=== PATIENT | male | born 1975 | race Caucasian/White ===

== ENCOUNTER → 2016-10-25 | Outpatient (CLI) | payer BC ==
[~2016-10-25] MED LIST: ADDERALL30 MG PO; ALBUTEROL0.09 MG/A2 INH; AMOXICILLIN500 MG PO; AMOXIL500 M1 PO; AMOXIL500 MG PO; ANAPROX DS550 MG PO; ATIVAN1 MG PO; AUGMENTIN 875 M1 TAB PO; AUGMENTIN 875875 MG PO; BACTRIM DS 8001 TA1 PO; BLEPH-10 15 ML15 ML OPH; CLARITIN-D 10 M1 T21 PO; CLARITIN10 MG PO; COMBIVENT1 ARO IH; DAYPRO600 M1 PO; DICLOFENAC POTA50 MG PO; DUONEB 3 MG/3 ML3 M1 INH; Duoneb 3ML 3 MG/3 ML INH; FLOVENT DI100 MCG/Ac IH; Flovent 44 Mcg44 MCG INH; KEFLEX500 MG PO; LEVOFLOXACIN500 MG PO; MEDROL DOSEPAK4 MG PO; MOTRIN800 MG PO; NAPROSYN500 MG PO; NORCO 325 MG-51 TAB PO; PHENERGAN W/ DE30 ML PO; PHENERGAN W/DM120 ML PO; PREDNICOT10 MG PO; PREDNISONE10 MG PO; PREDNISONE20 M1 PO; PROAIR HFA0.09 MG/AC INH; PROAIR HFA8.5 GM IH; PROVENTIL0.09 MG/A1 INH; PROVENTIL0.09 MG/AC INH; REMERON30 MG PO; REMERON45 MG PO; ROBITUSSIN AC 110 ML PO; SEPTRA DS 800 M1 TAB PO; TRAMADOL HCL50 MG PO; TRIMOX500 MG PO; ULTRAM50 MG PO; VENTOLIN H0.09 MG/AC INH; VICO10300 PO; ZITHROMAX Z PA250 MG PO
== END | disposition home or self-care (01) ==
LOC: CARD 10:07
DX: Z51.81 Encounter for therapeutic drug level monitoring (principal); F15.20 Other stimulant dependence, uncomplicated; Z79.899 Other long term (current) drug therapy

== ENCOUNTER 2017-12-17 05:48 | Emergency (ER) | payer BC ==
[~2017-12-17] VITALS: Ht 167.6 cm; Wt 83.9 kg
--- NOTE | ~2017-12-17 | EKG ---
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
[2017-12-17 06:33] LABS: BASO # 0.1 10*3/uL (0.0-0.1); BASO % 0.8 % (0.0-1.0); EOS # 0.6 10*3/uL (0.0-0.4); EOS % 8.9 % (1.0-4.0); HEMOGLOBIN 14.8 g/dl (14.0-18.0); LYMPH # 2.8 10*3/uL (1.3-4.4); LYMPH % 44.3 % (27.0-41.0); MEAN CORPUSCULAR HGB CONC 34.4 g/dl (33.0-37.0); MEAN PLATELET VOLUME 9.9 fl (9.6-12.3); MONO # 0.5 10*3/uL (0.1-1.0); MONO % 7.2 % (3.0-9.0); NEUT # 2.4 10*3/uL (2.3-7.9); NEUT % 38.6 % (47.0-73.0); PLATELET COUNT AUTOMATED 175 10*3/uL (130-400); RED BLOOD COUNT 4.48 10*6/uL (4.50-5.90); RED CELL DISTRI WIDTH 12.2 % (0-14.5); WHITE BLOOD COUNT 6.2 10*3/uL (4.8-10.8)
[2017-12-17 06:49] LABS: ALBUMIN 3.8 gm/dl (3.1-4.5); ALKALINE PHOSPHATASE 80 U/L (45-117); BUN 14 mg/dl (7-24); CHLORIDE 108 mmol/L (98-107); CREATININE 0.88 mg/dL (0.70-1.30); LIPASE 183 U/L (73-393); SGOT/AST 15 IU/L (3-35); SGPT/ALT 29 U/L (12-78); SODIUM 141 mmol/L (136-145); TOTAL PROTEIN 6.9 gm/dL (6.4-8.2)
[2017-12-17 06:51] LABS: TROPONIN I < 0.015 ng/ml (<0.045)
[2017-12-17 08:28] LABS: BILIRUBIN NEGATIVE (NEGATIVE); BLOOD NEGATIVE (NEGATIVE); CLARITY CLEAR (CLEAR); COLOR YELLOW (YELLOW); GLUCOSE NEGATIVE (NEGATIVE); KETONE NEGATIVE (NEGATIVE); LEUKO ESTERASE NEGATIVE (NEGATIVE); NITRITE NEGATIVE (NEGATIVE); UROBILINOGEN 0.2 E.U./dl (0.2-1.0)
[2017-12-17 08:29] LABS: EPITHELIAL CELLS 0-2; MUCOUS TRACE; WBC 0-2 wbc/hpf (0-5)
== END 2017-12-17 10:10 | disposition home or self-care (01) ==
LOC: ED 05:48
PROVIDERS: Emergency Medicine Emergency Medical Services
DX: K52.9 Noninfective gastroenteritis and colitis, unspecified (principal); J45.909 Unspecified asthma, uncomplicated; Z79.899 Other long term (current) drug therapy

== ENCOUNTER 2018-02-09 12:26 | Emergency (ER) | payer BC ==
[~2018-02-09] VITALS: Ht 165.1 cm; Wt 83.9 kg
[2018-02-09] MEDS ORDERED: AMOXICILLIN500 M2 PO (14:44)
[2018-02-09] MEDS ORDERED: NAPROSYN500 MG PO (14:44)
[2018-02-09] MEDS ORDERED: PREDNISONE20 M1 PO (14:44)
[2018-02-09] MEDS ORDERED: ROBAXIN500 M1 PO (14:44)
== END 2018-02-09 15:05 | disposition home or self-care (01) ==
LOC: ED 12:26
DX: S39.012A Strain of muscle, fascia and tendon of lower back, initial encounter (principal); J20.9 Acute bronchitis, unspecified; Z79.899 Other long term (current) drug therapy; X58.XXXA Exposure to other specified factors, initial encounter; Y93.89 Activity, other specified; Y92.89 Other specified places as the place of occurrence of the external cause; Y99.8 Other external cause status

== ENCOUNTER 2018-06-15 09:55 | Emergency (ER) | payer BC ==
[~2018-06-15] VITALS: Ht 162.5 cm; Wt 87.1 kg
[~2018-06-15 09:55] MED LIST changes: +AMOXICILLIN500 M2 PO; +ROBAXIN500 M1 PO
[2018-06-15] MEDS ORDERED: ROBAXIN500 M1 PO (12:46)
[2018-06-15] MEDS ORDERED: IBUPROFEN600 MG PO (12:46)
== END 2018-06-15 12:53 | disposition home or self-care (01) ==
LOC: ED 09:55
DX: S13.9XXA Sprain of joints and ligaments of unspecified parts of neck, initial encounter (principal); M79.18 Myalgia, other site; M25.511 Pain in right shoulder; M25.512 Pain in left shoulder; Z87.891 Personal history of nicotine dependence; Z91.048 Other nonmedicinal substance allergy status; Z79.899 Other long term (current) drug therapy; Z79.2 Long term (current) use of antibiotics; X50.1XXA Overexertion from prolonged static or awkward postures, initial encounter; Y93.89 Activity, other specified; Y92.89 Other specified places as the place of occurrence of the external cause; Y99.0 Civilian activity done for income or pay

== ENCOUNTER 2019-01-23 09:47 | Emergency (ER) | payer BC ==
[~2019-01-23] VITALS: Ht 167.6 cm; Wt 83.9 kg
[~2019-01-23 09:47] MED LIST changes: +IBUPROFEN600 MG PO
[2019-01-23] MEDS ORDERED: AUGMENTIN 875-875 MG PO (09:55)
[2019-01-23] MEDS ORDERED: FLONASE ALLERG9.9 ML NAS (09:55)
[2019-01-23] MEDS ORDERED: MUCINEX DM ER1 EACH PO (09:55)
== END 2019-01-23 10:04 | disposition home or self-care (01) ==
LOC: ED 09:47
DX: J01.10 Acute frontal sinusitis, unspecified (principal); J01.00 Acute maxillary sinusitis, unspecified; J45.909 Unspecified asthma, uncomplicated; Z91.048 Other nonmedicinal substance allergy status; Z87.891 Personal history of nicotine dependence; Z79.899 Other long term (current) drug therapy; Z79.2 Long term (current) use of antibiotics

== ENCOUNTER 2019-03-28 10:36 | Emergency (ER) | payer BC ==
[~2019-03-28] VITALS: Ht 167.6 cm; Wt 86.2 kg
[~2019-03-28 10:36] MED LIST changes: +AUGMENTIN 875-875 MG PO; +FLONASE ALLERG9.9 ML NAS; +MUCINEX DM ER1 EACH PO
[2019-03-28 12:04] LABS: BASO % 0.7 % (0.0-1.0); EOS # 0.4 10*3/uL (0.0-0.4); EOS % 6.5 % (1.0-4.0); HEMATOCRIT 38.3 % (42.0-52.0); HEMOGLOBIN 13.1 g/dl (14.0-18.0); LYMPH # 2.2 10*3/uL (1.3-4.4); LYMPH % 40.1 % (27.0-41.0); MEAN CELL VOLUME 98.5 fl (80.0-94.0); MEAN CORPUSCULAR HGB 33.7 pg (27.0-31.0); MEAN CORPUSCULAR HGB CONC 34.2 g/dl (33.0-37.0); MEAN PLATELET VOLUME 10.1 fl (9.6-12.3); MONO # 0.5 10*3/uL (0.1-1.0); MONO % 8.2 % (3.0-9.0); NEUT # 2.4 10*3/uL (2.3-7.9); NEUT % 44.3 % (47.0-73.0); PLATELET COUNT AUTOMATED 159 10*3/uL (130-400); RED BLOOD COUNT 3.89 10*6/uL (4.50-5.90); RED CELL DISTRI WIDTH 12.2 % (0-14.5); WHITE BLOOD COUNT 5.5 10*3/uL (4.8-10.8)
[2019-03-28 12:23] LABS: ALBUMIN 3.4 gm/dl (3.1-4.5); BUN 14 mg/dl (7-24); CHLORIDE 111 mmol/L (98-107); CREATININE 0.88 mg/dL (0.70-1.30); SGOT/AST 10 IU/L (3-35); SGPT/ALT 28 U/L (12-78); SODIUM 142 mmol/L (136-145)
[2019-03-28 12:24] LABS: ALKALINE PHOSPHATASE 81 U/L (45-117); TOTAL PROTEIN 6.4 gm/dL (6.4-8.2)
== END 2019-03-28 14:24 | disposition home or self-care (01) ==
LOC: ED 10:36
PROVIDERS: Physician Assistant
DX: H53.8 Other visual disturbances (principal); J45.909 Unspecified asthma, uncomplicated; Z79.899 Other long term (current) drug therapy

== ENCOUNTER 2019-06-13 13:53 | Emergency (ER) | payer BC ==
[~2019-06-13] VITALS: Ht 165.1 cm; Wt 83.9 kg
[2019-06-13] MEDS ORDERED: TESSALON PERLE100 M1 PO (15:21)
[2019-06-13] MEDS ORDERED: DOXYCYCLINE100 M3 PO (15:21)
== END 2019-06-13 15:24 | disposition home or self-care (01) ==
LOC: ED 13:53
DX: J45.901 Unspecified asthma with (acute) exacerbation (principal); M54.5 Low back pain; Z87.891 Personal history of nicotine dependence; Z79.899 Other long term (current) drug therapy; Z79.2 Long term (current) use of antibiotics

== ENCOUNTER 2019-07-24 18:49 | Emergency (ER) | payer BC ==
[~2019-07-24] VITALS: Ht 170.1 cm; Wt 84.4 kg
[~2019-07-24 18:49] MED LIST changes: +DOXYCYCLINE100 M3 PO; +TESSALON PERLE100 M1 PO
[2019-07-24] MEDS ORDERED: NAPROSYN500 MG PO (21:51)
[2019-07-24] MEDS ORDERED: CYCLOBENZAPRINE5 M3 PO (21:51)
== END 2019-07-24 22:00 | disposition home or self-care (01) ==
LOC: ED 18:49
DX: S20.211A Contusion of right front wall of thorax, initial encounter (principal); Z79.899 Other long term (current) drug therapy; V19.9XXA Pedal cyclist (driver) (passenger) injured in unspecified traffic accident, initial encounter; Y93.89 Activity, other specified; Y92.89 Other specified places as the place of occurrence of the external cause; Y99.8 Other external cause status

== ENCOUNTER 2019-08-12 14:14 | Emergency (ER) | payer BC ==
[~2019-08-12] VITALS: Ht 167.6 cm; Wt 83.9 kg
[~2019-08-12 14:14] MED LIST changes: +CYCLOBENZAPRINE5 M3 PO
[2019-08-12] MEDS ORDERED: IBUPROFEN600 MG PO (15:59)
== END 2019-08-12 16:14 | disposition home or self-care (01) ==
LOC: ED 14:14
DX: S20.20XA Contusion of thorax, unspecified, initial encounter (principal); F32.9 Major depressive disorder, single episode, unspecified; F41.9 Anxiety disorder, unspecified; J45.909 Unspecified asthma, uncomplicated; F17.200 Nicotine dependence, unspecified, uncomplicated; Z79.899 Other long term (current) drug therapy; Z79.2 Long term (current) use of antibiotics; W19.XXXA Unspecified fall, initial encounter; Y93.89 Activity, other specified; Y92.89 Other specified places as the place of occurrence of the external cause; Y99.8 Other external cause status

== ENCOUNTER → 2019-12-19 | Outpatient (CLI) | payer BC ==
[2019-12-19 15:55] LABS: BASO % 0.7 % (0.0-1.0); EOS # 0.6 10*3/uL (0.0-0.4); EOS % 9.9 % (1.0-4.0); LYMPH # 2.3 10*3/uL (1.3-4.4); LYMPH % 39.1 % (27.0-41.0); MEAN CELL VOLUME 96.6 fl (80.0-94.0); MEAN CORPUSCULAR HGB 31.6 pg (27.0-31.0); MEAN CORPUSCULAR HGB CONC 32.8 g/dl (33.0-37.0); MEAN PLATELET VOLUME 10.2 fl (9.6-12.3); MONO # 0.4 10*3/uL (0.1-1.0); MONO % 7.2 % (3.0-9.0); NEUT # 2.6 10*3/uL (2.3-7.9); NEUT % 42.9 % (47.0-73.0); PLATELET COUNT AUTOMATED 179 10*3/uL (130-400); RED BLOOD COUNT 4.14 10*6/uL (4.50-5.90); RED CELL DISTRI WIDTH 12.2 % (0-14.5)
[2019-12-19 16:25] LABS: ALBUMIN 3.5 gm/dl (3.1-4.5); ALKALINE PHOSPHATASE 90 U/L (45-117); BILIRUBIN, DIRECT < 0.1 mg/dL (0.0-0.2); BUN 13 mg/dl (7-24); CHLORIDE 112 mmol/L (98-107); CHOLESTEROL 142 mg/dL (<200); CREATININE 0.89 mg/dL (0.70-1.30); HDL CHOLESTEROL 51 mg/dl (40-60); LDL CHOLESTEROL 57 mg/dL (9-159); POTASSIUM 4.1 mmol/L (3.5-5.1); SGOT/AST 17 IU/L (3-35); SGPT/ALT 28 U/L (12-78); SODIUM 139 mmol/L (136-145); T3 UPTAKE 34 % (31-39); THYROXINE (T4) TOTAL 7.2 ug/dl (4.5-12.1); TOTAL PROTEIN 6.9 gm/dL (6.4-8.2); TRIGLYCERIDES 171 mg/dl (<150); VLDL CHOLESTEROL 34 mg/dL (6-40)
== END | disposition home or self-care (01) ==
LOC: LAB 14:56
DX: Z51.81 Encounter for therapeutic drug level monitoring (principal); Z79.899 Other long term (current) drug therapy

== ENCOUNTER 2020-01-02 14:00 | Emergency (ER) | payer BC ==
[~2020-01-02] VITALS: Ht 167.6 cm; Wt 85.7 kg
[2020-01-02] MEDS ORDERED: MEDROL DOSEPAK4 MG PO (15:45)
[2020-01-02] MEDS ORDERED: ZITHROMAX250 MG PO (15:45)
== END 2020-01-02 16:15 | disposition home or self-care (01) ==
LOC: ED 14:00
DX: J45.901 Unspecified asthma with (acute) exacerbation (principal); F17.200 Nicotine dependence, unspecified, uncomplicated; Z79.899 Other long term (current) drug therapy

== ENCOUNTER → 2020-02-22 | Outpatient (CLI) | payer BC ==
[~2020-02-22] MED LIST changes: +VENTOLIN 02.5 MG/3 M INH; +ZITHROMAX250 MG PO
== END ==
LOC: COVID19 11:49
PROVIDERS: ATTEND Internal Medicine
DX: Z20.828 Contact with and (suspected) exposure to other viral communicable diseases (principal)

== ENCOUNTER 2020-02-27 14:04 | Emergency (ER) | payer BC ==
[~2020-02-27] VITALS: Wt 79.4 kg
[~2020-02-27 14:04] MED LIST changes: -VENTOLIN 02.5 MG/3 M INH
[2020-02-27 14:31] LABS: BASO % 0.5 % (0.0-1.0); EOS # 0.6 10*3/uL (0.0-0.4); EOS % 10.3 % (1.0-4.0); HEMATOCRIT 41.1 % (42.0-52.0); LYMPH # 1.9 10*3/uL (1.3-4.4); LYMPH % 31.9 % (27.0-41.0); MEAN CELL VOLUME 96.3 fl (80.0-94.0); MEAN CORPUSCULAR HGB CONC 34.3 g/dl (33.0-37.0); MEAN PLATELET VOLUME 9.8 fl (9.6-12.3); MONO # 0.4 10*3/uL (0.1-1.0); MONO % 6.3 % (3.0-9.0); NEUT # 3.1 10*3/uL (2.3-7.9); NEUT % 50.8 % (47.0-73.0); PLATELET COUNT AUTOMATED 180 10*3/uL (130-400); RED BLOOD COUNT 4.27 10*6/uL (4.50-5.90); RED CELL DISTRI WIDTH 12.2 % (0-14.5)
[2020-02-27 14:45] LABS: ALBUMIN 3.4 gm/dl (3.1-4.5); ALKALINE PHOSPHATASE 88 U/L (45-117); BUN 11 mg/dl (7-24); CHLORIDE 112 mmol/L (98-107); CREATININE 0.85 mg/dL (0.70-1.30); SGOT/AST 16 IU/L (3-35); SGPT/ALT 27 U/L (12-78); SODIUM 142 mmol/L (136-145); TOTAL PROTEIN 6.8 gm/dL (6.4-8.2)
[2020-02-27 14:46] LABS: ACT PARTIAL THROMBO TIME 25.1 SECONDS (20.0-32.1); INTERNATIONAL NORM RATIO 0.9 (2.0-3.5)
[2020-02-27 14:47] LABS: TROPONIN I < 0.015 ng/ml (<0.045)
[2020-02-27] MEDS ORDERED: VENTOLIN 02.5 MG/3 M INH (16:38)
== END 2020-02-27 17:09 | disposition home or self-care (01) ==
LOC: ED 14:04
PROVIDERS: Emergency Medicine
DX: J45.901 Unspecified asthma with (acute) exacerbation (principal); Z79.899 Other long term (current) drug therapy

== ENCOUNTER 2020-04-04 13:06 | Emergency (ER) | payer BC ==
[~2020-04-04] VITALS: Wt 83.9 kg
[~2020-04-04 13:06] MED LIST changes: +VENTOLIN 02.5 MG/3 M INH
[2020-04-04] MEDS ORDERED: PREDNISONE20 M1 PO (14:11)
[2020-04-04] MEDS ORDERED: PROVENTIL HFA6.7 GM INH (14:11)
[2020-04-04] MEDS ORDERED: SEPTDS PO (15:26)
== END 2020-04-04 15:30 | disposition home or self-care (01) ==
LOC: ED 13:06
DX: J32.9 Chronic sinusitis, unspecified (principal); Z79.899 Other long term (current) drug therapy

== ENCOUNTER → 2020-06-11 | Outpatient (CLI) | payer BC ==
[~2020-06-11] MED LIST changes: +PROVENTIL HFA6.7 GM INH; +SEPTDS PO
[2020-06-11 08:00] LABS: BASO # 0.1 10*3/uL (0.0-0.1); BASO % 0.9 % (0.0-1.0); EOS # 0.6 10*3/uL (0.0-0.4); EOS % 9.1 % (1.0-4.0); HEMATOCRIT 45.2 % (42.0-52.0); LYMPH # 2.4 10*3/uL (1.3-4.4); LYMPH % 37.4 % (27.0-41.0); MEAN CELL VOLUME 94.6 fl (80.0-94.0); MEAN CORPUSCULAR HGB 32.4 pg (27.0-31.0); MEAN CORPUSCULAR HGB CONC 34.3 g/dl (33.0-37.0); MEAN PLATELET VOLUME 9.6 fl (9.6-12.3); MONO # 0.5 10*3/uL (0.1-1.0); MONO % 7.1 % (3.0-9.0); NEUT # 2.9 10*3/uL (2.3-7.9); NEUT % 45.2 % (47.0-73.0); PLATELET COUNT AUTOMATED 198 10*3/uL (130-400); RED BLOOD COUNT 4.78 10*6/uL (4.50-5.90); WHITE BLOOD COUNT 6.5 10*3/uL (4.8-10.8)
[2020-06-11 08:29] LABS: ALBUMIN 3.6 gm/dl (3.1-4.5); ALKALINE PHOSPHATASE 78 U/L (45-117); BUN 13 mg/dl (7-24); CHLORIDE 109 mmol/L (98-107); CHOLESTEROL 185 mg/dL (<200); CREATININE 0.89 mg/dL (0.70-1.30); HDL CHOLESTEROL 60 mg/dl (40-60); LDL CHOLESTEROL 84 mg/dL (9-159); SGOT/AST 11 IU/L (3-35); SGPT/ALT 26 U/L (12-78); SODIUM 142 mmol/L (136-145); TOTAL PROTEIN 7.2 gm/dL (6.4-8.2); TRIGLYCERIDES 203 mg/dl (<150); VLDL CHOLESTEROL 41 mg/dL (6-40)
== END | disposition home or self-care (01) ==
LOC: LAB 07:49
DX: Z51.81 Encounter for therapeutic drug level monitoring (principal); Z79.899 Other long term (current) drug therapy

== ENCOUNTER 2020-06-22 11:39 | Emergency (ER) | payer BC ==
[~2020-06-22] VITALS: Ht 167.6 cm; Wt 83.9 kg
[2020-06-22] MEDS ORDERED: MEDROL DOSEPAK4 MG PO (14:09)
== END 2020-06-22 14:30 | disposition home or self-care (01) ==
LOC: ED 11:39
DX: M54.12 Radiculopathy, cervical region (principal); Z79.899 Other long term (current) drug therapy; Z79.2 Long term (current) use of antibiotics

== ENCOUNTER 2020-06-29 14:32 | Emergency (ER) | payer BC ==
[~2020-06-29] VITALS: Ht 167.6 cm; Wt 81.6 kg
== END 2020-06-29 17:14 | disposition home or self-care (01) ==
LOC: ED 14:32
DX: U07.1 COVID-19 (principal)

== ENCOUNTER 2020-07-19 05:34 | Emergency (ER) | payer BC ==
[~2020-07-19] VITALS: Ht 167.6 cm; Wt 83.0 kg
== END 2020-07-19 06:54 | disposition home or self-care (01) ==
LOC: ED 05:34
DX: H05.222 Edema of left orbit (principal); Z79.899 Other long term (current) drug therapy

== ENCOUNTER 2020-09-03 07:59 | Emergency (ER) | payer BC ==
[~2020-09-03] VITALS: Ht 167.6 cm; Wt 84.4 kg
[2020-09-03] MEDS ORDERED: PROAIR HFA8.5 GM INH (09:34)
[2020-09-03] MEDS ORDERED: PREDNISONE50 MG PO (09:34)
== END 2020-09-03 09:47 | disposition home or self-care (01) ==
LOC: ED 07:59
DX: R07.89 Other chest pain (principal); M25.521 Pain in right elbow; Z79.899 Other long term (current) drug therapy; W19.XXXA Unspecified fall, initial encounter; Y93.89 Activity, other specified; Y92.89 Other specified places as the place of occurrence of the external cause; Y99.8 Other external cause status

== ENCOUNTER 2020-09-06 10:03 | Emergency (ER) | payer BC ==
[~2020-09-06] VITALS: Wt 83.5 kg
[~2020-09-06 10:03] MED LIST changes: +PREDNISONE50 MG PO; +PROAIR HFA8.5 GM INH
[2020-09-06] MEDS ORDERED: NAPROXEN250 MG PO (11:40)
[2020-09-06] MEDS ORDERED: TYLENOL325 M1 PO (11:40)
== END 2020-09-06 11:45 | disposition home or self-care (01) ==
LOC: ED 10:03
DX: R45.4 Irritability and anger (principal); T38.0X5A Adverse effect of glucocorticoids and synthetic analogues, initial encounter; Z79.899 Other long term (current) drug therapy; Y92.89 Other specified places as the place of occurrence of the external cause

== ENCOUNTER 2020-11-12 14:57 | Emergency (ER) | payer BC ==
[~2020-11-12] VITALS: Ht 294.6 cm; Wt 83.9 kg
[~2020-11-12 14:57] MED LIST changes: +NAPROXEN250 MG PO; +TYLENOL325 M1 PO
[2020-11-12] MEDS ORDERED: CYCLOBENZAPRINE10 MG PO (18:56)
== END 2020-11-12 19:05 | disposition home or self-care (01) ==
LOC: ED 14:57
DX: M62.830 Muscle spasm of back (principal); M62.838 Other muscle spasm; M54.10 Radiculopathy, site unspecified; J45.909 Unspecified asthma, uncomplicated; F17.200 Nicotine dependence, unspecified, uncomplicated; Z79.899 Other long term (current) drug therapy; Z79.2 Long term (current) use of antibiotics

== ENCOUNTER 2020-11-27 12:22 | Emergency (ER) | payer BC ==
[~2020-11-27] VITALS: Ht 180 cm; Wt 81.6 kg
[~2020-11-27 12:22] MED LIST changes: +CYCLOBENZAPRINE10 MG PO
== END 2020-11-27 15:30 | disposition left against medical advice (07) ==
LOC: ED 12:22
DX: R42 Dizziness and giddiness (principal); M54.9 Dorsalgia, unspecified; Z53.21 Procedure and treatment not carried out due to patient leaving prior to being seen by health care provider

== ENCOUNTER 2020-12-13 14:39 | Emergency (ER) | payer BC ==
[~2020-12-13] VITALS: Ht 167.6 cm; Wt 83.9 kg
== END 2020-12-13 20:00 | disposition left against medical advice (07) ==
LOC: ED 14:39
DX: M54.9 Dorsalgia, unspecified (principal); Z53.21 Procedure and treatment not carried out due to patient leaving prior to being seen by health care provider

== ENCOUNTER → 2021-01-03 | Outpatient (CLI) | payer BC | END | disposition home or self-care (01) | LOC: COVID19 15:12 | PROVIDERS: ATTEND Internal Medicine | DX: Z11.52 Encounter for screening for COVID-19 (principal) ==

== ENCOUNTER 2021-03-19 09:51 | Emergency (ER) | payer BC ==
[~2021-03-19] VITALS: Wt 83.9 kg
== END 2021-03-19 11:01 | disposition home or self-care (01) ==
LOC: ED 09:51
DX: U07.1 COVID-19 (principal); B34.9 Viral infection, unspecified; Z79.899 Other long term (current) drug therapy

== ENCOUNTER 2021-04-23 05:48 | Emergency (ER) | payer BC ==
[~2021-04-23] VITALS: Ht 167.6 cm; Wt 83.9 kg
[2021-04-23 07:02] LABS: BASO # 0.1 10*3/uL (0.0-0.1); EOS # 0.5 10*3/uL (0.0-0.4); EOS % 8.7 % (1.0-4.0); HEMATOCRIT 41.3 % (42.0-52.0); LYMPH # 2.3 10*3/uL (1.3-4.4); LYMPH % 45.2 % (27.0-41.0); MEAN CELL VOLUME 93.9 fl (80.0-94.0); MEAN CORPUSCULAR HGB 31.8 pg (27.0-31.0); MEAN CORPUSCULAR HGB CONC 33.9 g/dl (33.0-37.0); MEAN PLATELET VOLUME 9.8 fl (9.6-12.3); MONO # 0.4 10*3/uL (0.1-1.0); MONO % 7.5 % (3.0-9.0); NEUT # 1.9 10*3/uL (2.3-7.9); NEUT % 37.4 % (47.0-73.0); PLATELET COUNT AUTOMATED 185 10*3/uL (130-400); RED CELL DISTRI WIDTH 11.9 % (0-14.5); WHITE BLOOD COUNT 5.2 10*3/uL (4.8-10.8)
[2021-04-23 07:16] LABS: ALBUMIN 3.3 gm/dl (3.1-4.5); ALKALINE PHOSPHATASE 71 U/L (45-117); BUN 10 mg/dl (7-24); CHLORIDE 112 mmol/L (98-107); CREATININE 0.84 mg/dL (0.70-1.30); POTASSIUM 4.3 mmol/L (3.5-5.1); SGOT/AST 10 IU/L (3-35); SGPT/ALT 21 U/L (12-78); SODIUM 143 mmol/L (136-145); TOTAL PROTEIN 6.4 gm/dL (6.4-8.2)
[2021-04-23] MEDS ORDERED: PROVENTIL HFA6.7 GM INH (07:22)
== END 2021-04-23 07:40 | disposition home or self-care (01) ==
LOC: ED 05:48
PROVIDERS: Internal Medicine
DX: J06.9 Acute upper respiratory infection, unspecified (principal); Z20.822 Contact with and (suspected) exposure to COVID-19; Z79.899 Other long term (current) drug therapy

== ENCOUNTER 2021-05-31 05:26 | Emergency (ER) | payer BC ==
[~2021-05-31] VITALS: Ht 172.7 cm; Wt 83.9 kg
[2021-05-31] MEDS ORDERED: NAPROXEN250 MG PO (05:46)
[2021-05-31] MEDS ORDERED: METHOCARBAMOL750 M1 PO (05:46)
== END 2021-05-31 05:48 | disposition home or self-care (01) ==
LOC: ED 05:26
DX: S16.1XXA Strain of muscle, fascia and tendon at neck level, initial encounter (principal); S39.012A Strain of muscle, fascia and tendon of lower back, initial encounter; M77.01 Medial epicondylitis, right elbow; Z79.899 Other long term (current) drug therapy; X58.XXXA Exposure to other specified factors, initial encounter; Y93.89 Activity, other specified; Y92.89 Other specified places as the place of occurrence of the external cause; Y99.8 Other external cause status

== ENCOUNTER → 2021-06-15 | Outpatient (CLI) | payer BC ==
[~2021-06-15] MED LIST changes: +METHOCARBAMOL750 M1 PO
[2021-06-15 09:17] LABS: BASO # 0.1 10*3/uL (0.0-0.1); BASO % 0.8 % (0.0-1.0); EOS # 0.4 10*3/uL (0.0-0.4); EOS % 6.3 % (1.0-4.0); HEMATOCRIT 48.1 % (42.0-52.0); LYMPH % 32.3 % (27.0-41.0); MEAN CELL VOLUME 92.5 fl (80.0-94.0); MEAN CORPUSCULAR HGB 31.3 pg (27.0-31.0); MEAN CORPUSCULAR HGB CONC 33.9 g/dl (33.0-37.0); MEAN PLATELET VOLUME 9.7 fl (9.6-12.3); MONO # 0.5 10*3/uL (0.1-1.0); MONO % 7.4 % (3.0-9.0); NEUT # 3.3 10*3/uL (2.3-7.9); NEUT % 52.9 % (47.0-73.0); PLATELET COUNT AUTOMATED 222 10*3/uL (130-400); RED CELL DISTRI WIDTH 12.1 % (0-14.5); WHITE BLOOD COUNT 6.2 10*3/uL (4.8-10.8)
[2021-06-15 09:33] LABS: ALKALINE PHOSPHATASE 80 U/L (45-117); BUN 13 mg/dl (7-24); CHLORIDE 108 mmol/L (98-107); CHOLESTEROL 175 mg/dL (<200); LDL CHOLESTEROL 79 mg/dL (9-159); POTASSIUM 4.5 mmol/L (3.5-5.1); SGOT/AST 12 IU/L (3-35); SGPT/ALT 19 U/L (12-78); SODIUM 142 mmol/L (136-145); TOTAL PROTEIN 7.4 gm/dL (6.4-8.2); TRIGLYCERIDES 166 mg/dl (<150)
== END | disposition home or self-care (01) ==
LOC: LAB 08:37
PROVIDERS: ATTEND Nurse Practitioner
DX: Z51.81 Encounter for therapeutic drug level monitoring (principal); F90.9 Attention-deficit hyperactivity disorder, unspecified type; Z79.899 Other long term (current) drug therapy

== ENCOUNTER 2021-09-09 21:38 | Emergency (ER) | payer SELFPAY ==
[2021-09-09] MEDS ORDERED: PREDNISONE50 MG PO (21:48)
== END 2021-09-09 21:50 | disposition home or self-care (01) ==
LOC: ED 21:38
DX: L23.7 Allergic contact dermatitis due to plants, except food (principal); Z79.899 Other long term (current) drug therapy

== ENCOUNTER 2022-01-22 17:31 | Emergency (ER) | payer OTHER ==
[~2022-01-22] VITALS: Ht 167.6 cm; Wt 83.9 kg
[2022-01-22 18:55] LABS: BASO % 0.5 % (0.0-1.0); EOS # 0.1 10*3/uL (0.0-0.4); EOS % 1.9 % (1.0-4.0); HEMATOCRIT 45.2 % (42.0-52.0); LYMPH # 1.2 10*3/uL (1.3-4.4); LYMPH % 17.9 % (27.0-41.0); MEAN CELL VOLUME 95.2 fl (80.0-94.0); MEAN CORPUSCULAR HGB 32.2 pg (27.0-31.0); MEAN CORPUSCULAR HGB CONC 33.8 g/dl (33.0-37.0); MEAN PLATELET VOLUME 9.5 fl (9.6-12.3); MONO # 0.9 10*3/uL (0.1-1.0); MONO % 13.6 % (3.0-9.0); NEUT # 4.3 10*3/uL (2.3-7.9); NEUT % 65.8 % (47.0-73.0); PLATELET COUNT AUTOMATED 171 10*3/uL (130-400); RED BLOOD COUNT 4.75 10*6/uL (4.50-5.90); RED CELL DISTRI WIDTH 12.7 % (0-14.5); WHITE BLOOD COUNT 6.5 10*3/uL (4.8-10.8)
[2022-01-22 19:21] LABS: ALKALINE PHOSPHATASE 87 U/L (45-117); BUN 11 mg/dl (7-24); CHLORIDE 105 mmol/L (98-107); CREATININE 0.88 mg/dL (0.70-1.30); POTASSIUM 4.3 mmol/L (3.5-5.1); SGOT/AST 13 IU/L (3-35); SGPT/ALT 21 U/L (12-78); SODIUM 138 mmol/L (136-145); TOTAL PROTEIN 7.1 gm/dL (6.4-8.2)
== END 2022-01-22 20:08 | disposition home or self-care (01) ==
LOC: ED 17:31
PROVIDERS: Physician Assistant
DX: B27.90 Infectious mononucleosis, unspecified without complication (principal); Z20.822 Contact with and (suspected) exposure to COVID-19; Z79.899 Other long term (current) drug therapy

== ENCOUNTER 2022-06-26 03:24 | Emergency (ER) | payer SELFPAY ==
[~2022-06-26] VITALS: Ht 172.7 cm; Wt 83.9 kg
[2022-06-26] MEDS ORDERED: AMOXICILLIN500 M2 PO (04:02)
== END 2022-06-26 04:09 | disposition home or self-care (01) ==
LOC: ED 03:24
DX: K02.9 Dental caries, unspecified (principal); K08.89 Other specified disorders of teeth and supporting structures; J44.9 Chronic obstructive pulmonary disease, unspecified; F32.A Depression, unspecified; F41.9 Anxiety disorder, unspecified; Z86.16 Personal history of COVID-19; Z87.891 Personal history of nicotine dependence

== ENCOUNTER 2022-08-26 07:50 | Emergency (ER) | payer OTHER ==
[~2022-08-26] VITALS: Wt 83.9 kg
[2022-08-26] MEDS ORDERED: Motrin,Rufen800 MG PO (08:06)
[2022-08-26] MEDS ORDERED: AMOXICILLIN875 MG PO (08:06)
== END 2022-08-26 08:11 | disposition home or self-care (01) ==
LOC: ED 07:50
DX: J02.9 Acute pharyngitis, unspecified (principal); F32.A Depression, unspecified; J45.909 Unspecified asthma, uncomplicated; F90.9 Attention-deficit hyperactivity disorder, unspecified type; F41.9 Anxiety disorder, unspecified

== ENCOUNTER 2022-10-24 18:39 | Emergency (ER) | payer OTHER ==
[~2022-10-24] VITALS: Ht 167.6 cm; Wt 775.6 kg
[~2022-10-24 18:39] MED LIST changes: +AMOXICILLIN875 MG PO; +Motrin,Rufen800 MG PO
[2022-10-24] MEDS ORDERED: AMOX-CLAV 875-1 EACH PO (20:35)
== END 2022-10-24 20:46 | disposition home or self-care (01) ==
LOC: ED 18:39
DX: S41.132A Puncture wound without foreign body of left upper arm, initial encounter (principal); S51.832A Puncture wound without foreign body of left forearm, initial encounter; F32.A Depression, unspecified; F41.9 Anxiety disorder, unspecified; J45.909 Unspecified asthma, uncomplicated; F90.9 Attention-deficit hyperactivity disorder, unspecified type; W54.0XXA Bitten by dog, initial encounter; Y93.89 Activity, other specified; Y92.89 Other specified places as the place of occurrence of the external cause; Y99.8 Other external cause status

== ENCOUNTER → 2023-04-08 | Outpatient (CLI) | payer OTHER ==
[~2023-04-08] MED LIST changes: +AMOX-CLAV 875-1 EACH PO
== END | disposition home or self-care (01) ==
LOC: RAD 11:25
PROVIDERS: ATTEND Internal Medicine
DX: J44.9 Chronic obstructive pulmonary disease, unspecified (principal)

== ENCOUNTER 2024-05-25 09:23 | Emergency (ER) | payer SELFPAY ==
[~2024-05-25] VITALS: Wt 85.7 kg
[2024-05-25 10:39] LABS: BUN 11 mg/dl (9-23); CHLORIDE 107 mmol/L (98-107); POTASSIUM 3.7 mmol/L (3.4-5.1)
[2024-05-25] MEDS ORDERED: PREDNISONE20 M1 PO (11:43)
[2024-05-25] MEDS ORDERED: ALBUTEROL2.5 MG/0.5 INH (11:43)
== END 2024-05-25 12:29 | disposition home or self-care (01) ==
LOC: ED 09:23
PROVIDERS: Emergency Medicine
DX: J40 Bronchitis, not specified as acute or chronic (principal); B34.9 Viral infection, unspecified; F32.A Depression, unspecified; F41.9 Anxiety disorder, unspecified; Z20.822 Contact with and (suspected) exposure to COVID-19; Z79.2 Long term (current) use of antibiotics; Z79.899 Other long term (current) drug therapy

== ENCOUNTER → 2024-06-04 | Outpatient (CLI) | payer OTHER ==
[~2024-06-04] MED LIST changes: +ALBUTEROL2.5 MG/0.5 INH
[2024-06-04 10:51] LABS: BASO % 0.3 % (0.0-1.0); EOS # 0.2 10*3/uL (0.0-0.4); EOS % 2.3 % (1.0-4.0); HEMATOCRIT 44.5 % (42.0-52.0); MEAN CELL VOLUME 94.5 fl (80.0-94.0); MEAN CORPUSCULAR HGB 31.8 pg (27.0-31.0); MEAN CORPUSCULAR HGB CONC 33.7 g/dl (33.0-37.0); MEAN PLATELET VOLUME 9.2 fl (9.6-12.3); MONO # 0.4 10*3/uL (0.1-1.0); MONO % 5.9 % (3.0-9.0); NEUT # 4.5 10*3/uL (2.3-7.9); PLATELET COUNT AUTOMATED 203 10*3/uL (130-400); RED BLOOD COUNT 4.71 10*6/uL (4.50-5.90); RED CELL DISTRI WIDTH 11.9 % (0-14.5); WHITE BLOOD COUNT 7.5 10*3/uL (4.8-10.8)
[2024-06-04 11:15] LABS: ALKALINE PHOSPHATASE 84 U/L (46-116); BUN 14 mg/dl (9-23); CHLORIDE 107 mmol/L (98-107); CHOLESTEROL 181 mg/dL (<200); LDL CHOLESTEROL 97 mg/dL (9-159); POTASSIUM 4.2 mmol/L (3.4-5.1); SGPT/ALT 13 U/L (5-49); TRIGLYCERIDES 202 mg/dl (<150)
== END | disposition home or self-care (01) ==
LOC: LAB 10:34
PROVIDERS: ATTEND Physician Assistant
DX: Z51.81 Encounter for therapeutic drug level monitoring (principal); F41.1 Generalized anxiety disorder